=== PATIENT | male | born 1985 | race Caucasian/White ===

== ENCOUNTER 2017-02-20 05:31 | Inpatient (IN) ==
[2017-02-20] MEDS ORDERED: 0.9 % Sodium Chloride 1,000 ML IVC ONE (05:48)
[2017-02-20] MEDS ORDERED: Tdap (Boostrix) Vaccine 0.5 ML SYRINGE IM ONE (05:51)
--- NOTE | 2017-02-20 05:53 | Emergency Department Note ---
Disposition Clinical Impression: Swelling of right hand, Hand pain, right, History of heroin use Cellulitis Qualifiers: Site of cellulitis: extremity Site of cellulitis of extremity: upper extremity Laterality: right Qualified Code(s): L03.113 - Cellulitis of right upper limb Disposition: Still a Patient Referrals: Unassigned,Provider [Non-Partnered Physician] - Forms: ED Satisfaction Letter General Adult HPI - General Chief complaint: ED Extremity Injury, Upper Stated complaint: right hand swelling has had staph Time Seen by Provider: 02/20/17 05:40 Source: patient Mode of arrival: ambulatory Limitations: no limitations Nursing Notes Reviewed: Yes Vital Signs Reviewed: Yes - History of Present Illness HPI Narrative: 31-year-old [id number] male for evaluation of right hand swelling. Notes it is atraumatic. Patient states swelling started yesterday morning. Patient states that he does have a history of MRSA skin infections in the past due to IV drug use. Patient notes that he has been injecting heroin in his right wrist. Patient also notes that he possibly got stabbed with a thorn in the yard as well as the right wrist. Patient states that he attempted to drain some of the fluid with superficial laceration over the dorsum of his wrist. Notes pain with movement of the wrist. Denies any fevers but does note chills. Swelling is noted in the wrist and hand. Pain with decreased range of motion of the fingers. No pain to the forearm or elbow. Tetanus status is unknown Pain Scale: 8 - Related Data Allergies Allergy/AdvReac Type Severity Reaction Status Date / Time No Known Allergies Allergy Verified 02/20/17 05:33 All systems ED: reviewed and negative except as stated. Constitutional: Reports: as per HPI, chills. Denies: fever Eyes: Reports: as per HPI ENT ED: Reports: as per HPI Cardiovascular: Reports: as per HPI. Denies: chest pain Respiratory: Reports: as per HPI. Denies: dyspnea Gastrointestinal: Reports: as per HPI. Denies: nausea, vomiting Genitourinary: Reports: as per HPI Musculoskeletal: Reports: as per HPI, other (As described) Integumentary: Reports: as per HPI. Denies: rash Neurological: Reports: as per HPI Psychiatric: Reports: as per HPI Endocrine: Reports: as per HPI Hematological/Lymphatic: Reports: as per HPI Past Medical History - Past Medical History Medical history: Reports: other Psychiatric history: Reports: no psych history - Social History Smoking Status: Current every day smoker Smokeless Tobacco Status: No Alcohol use: Reports: rarely Drug use: Reports: none Physical Exam - General Limitations: no limitations General appearance: alert, in no apparent distress - Head Head exam: atraumatic, normocephalic, normal inspection - Eye Eye exam: Present: normal appearance, PERRL, EOMI - ENT ENT exam: normal exam, mucous membranes moist - Neck Neck exam: Present: normal inspection, trachea midline - Chest Chest inspection: Present: normal inspection, symmetric chest wall rise - Respiratory Respiratory exam: Present: normal lung sounds bilaterally. Absent: respiratory distress - Cardiovascular Cardiovascular exam: Present: regular rate, normal rhythm - Abdominal Exam Abdominal exam: Present: soft, Non-Tender - Expanded Upper Extremity Exam Shoulder exam: Present: normal inspection Arm exam: Present: normal inspection Elbow exam: Present: normal inspection Forearm/Wrist exam: Present: normal inspection Hand exam: Present: tenderness, swelling, abrasion (Superficial laceration over the dorsum of the R hand), erythema (Faint erythema over the right hand extending proximally, outlined with a skin marker proximally.), other (Warmth erythema). Absent: deformity, crepitus Neurosensory exam: Normal: radial nerve Vascular exam: Normal: radial pulse. Abnorm: capillary refill (4 second capillary refill to the fingers) - Back Exam Back exam: Present: normal inspection - Neurological Exam Neurological exam: Present: alert, oriented X3 - Skin Skin exam: Present: warm, dry, intact, other (As described above) Course Course Narrative: Patient seen and examined. Patient does have soft tissue swelling of the right hand. Etiology likely secondary to IV drug use versus yard work with a thorn injury. On exam the patient's right hand is grossly swollen. Pain with decreased flexion extension of the fingers due to pain and swelling. Does appear warm to touch. No erythema. Concerns of soft tissue infection. Patient will get IV fluids, labs, imaging disposition is pending. Broad- spectrum antibiotics ordered in the ER. Vital Signs Temperature 98.2 F 02/20/17 05:34 Pulse Rate 94 02/20/17 05:34 Respiratory Rate 20 02/20/17 05:34 Blood Pressure 153/81 02/20/17 05:34 O2 Sat by Pulse Oximetry 100 02/20/17 05:34 Temperature 98.2 F 02/20/17 05:34 Pulse Rate 94 02/20/17 05:34 Respiratory Rate 20 02/20/17 05:34 Blood Pressure 153/81 02/20/17 05:34 O2 Sat by Pulse Oximetry 100 02/20/17 05:34 Oxygen Delivery Oxygen Delivery Room Air Medical Decision Making - MDM Narrative Medical decision making narrative: Patient seen and examined. Patient has a concerning exam of R hand swelling. Patient is getting LABS, IMAGING. initial imaging of the R hand shows swelling without subcutaneous air. Patient is getting a CT hand to determine the extent of infection. Patient labs reviewed. At the time of this dictation, the patient will be signed out to the oncoming provider. Patient is getting IV antibiotics. - Lab Data Lab results reviewed: Yes I reviewed the patient's lab results. Result diagrams: 02/20/17 06:27 Lab Results 02/20/17 Range/Units 06:27 WBC 15.1 H (4.3-11.1) K/mcL RBC 4.76 (4.19-5.50) M/mcL Hgb 14.3 (12.9-16.9) g/dL Hct 43.6 (37.5-50.1) % MCV 91.6 (83.0-100.0) fL MCH 30.0 (28.0-33.3) pg MCHC 32.8 (31.6-35.5) g/dL RDW 12.7 (11.5-14.5) % Plt Count 345 (140-400) K/mcL MPV 9.5 (9.4-12.4) fL Immature Gran % 0.5 (0-4) % Seg Neutrophils % 71.2 % Lymphocytes % 14.7 % Monocytes % 11.4 % Eosinophils % 1.9 % Basophils % 0.3 % Neutrophils # 10.8 H (1.6-8.9) K/mcL Lymphocytes # 2.2 (0.6-4.6) K/mcL Monocytes # 1.7 H (0.0-1.3) K/mcL Eosinophils # 0.3 (0.0-0.6) K/mcL Basophils # 0.1 (0.0-0.2) K/mcL - Radiology Data Radiology results reviewed: Yes I reviewed the patient's radiology results. Hand X-Ray 02/20/17 05:50 IMPRESSION: 1. No acute bony findings in the right hand. 2. Soft tissue swelling in the dorsum of the right hand, potentially cellulitis given the clinical history. D/ / Rey Syed MD / Rey Syed MD Interpreting Provider: Rey Syed MD artolome - Yadi Situation: Demographics Background: Presenting Complaint Assessment: Vital Signs, Course and respsone to treatment, Exam Concerns, Patient/Family Expectation, Pertinant Lab Results Recommendation: Barrier(s) to disposition, Recommendation based on pending studies, treatments, or consults SBartolome Report Given to: Dr. Jose A Grullon Repor Time: 06:54 Attestation Statement - Attestation Attestation: I examined this patient and my medical decision-making was reviewed with the MACHINE ERECTOR/PA/Advanced Practice Nurse/Resident Physician. I agree with the documented findings, disposition and treatment plan as described except to the extent set forth below. Patient to ED with right hand swelling. History of IV drug use. Increased erythema and pain over 2 days. Started swelling significantly this morning. No fever. On examination the patient has a moderate to significant amount of swelling to the dorsum of the right hand. Decreased ability to extend his fingers. No areas of fluctuance. Plan. X-ray does not show any obvious subcutaneous air. Labs pending. We will check CT scan. Initiating IV antibiotics this time.
[2017-02-20] MEDS ORDERED: *HR* Morphine 2 MG/ML SYRINGE IVP ONE (05:56)
[2017-02-20] MEDS ORDERED: Ondansetron 4 MG/2 ML VIAL IVP ONE (05:56)
[2017-02-20] MEDS ORDERED: Vancomycin 1,250 MG in D5% in Water 250 ML IVPB ONE (06:29)
[2017-02-20] MEDS ORDERED: Piperacillin/Tazobactam 4.5 GM in D5% in Water (Mini-Bag+) 100 ML IVPB ONE (06:29)
[2017-02-20 06:35] LABS: Basophils # 0.1 K/mcL (0.0-0.2); Basophils % 0.3 %; Eosinophils # 0.3 K/mcL (0.0-0.6); Eosinophils % 1.9 %; Hematocrit 43.6 % (37.5-50.1); Hemoglobin 14.3 g/dL (12.9-16.9); Immature Granulocytes % 0.5 % (0-4); Lymphocytes # 2.2 K/mcL (0.6-4.6); Lymphocytes % 14.7 %; Mean Corpuscular HGB Conc 32.8 g/dL (31.6-35.5); Mean Corpuscular Volume 91.6 fL (83.0-100.0); Mean Platelet Volume 9.5 fL (9.4-12.4); Monocytes # 1.7 K/mcL (0.0-1.3); Monocytes % 11.4 %; Neutrophils # 10.8 K/mcL (1.6-8.9); Platelet Count 345 K/mcL (140-400); Red Blood Count 4.76 M/mcL (4.19-5.50); Red Cell Distribution Width 12.7 % (11.5-14.5); Segmented Neutrophils % 71.2 %
[2017-02-20 06:49] LABS: BUN/Creatinine Ratio 14 (6-26); Blood Urea Nitrogen 12 mg/dL (8-26); Calcium 9.5 mg/dL (8.6-10.8); Carbon Dioxide 25 mEq/L (19-29); Chloride 100 mEq/L (98-109); Glucose 92 mg/dL (70-99); Osmolality,Calculated 281 (280-300); Potassium 4.4 mEq/L (3.5-4.5); Sodium 136 mEq/L (136-145); eGFR For African Americans > 60 (> 60); eGFR For Non-African Americans > 60 (> 60)
--- NOTE | 2017-02-20 08:24 | Emergency Department Note ---
START Narrative - START START: I examined this patient and my medical decision-making was reviewed with the LOAD HAUL DUMP OPERATOR/PA/Advanced Practice Nurse/Resident Physician. I agree with the documented findings, disposition and treatment plan as described except to the extent set forth below. ED attending note: Patient seen with emergency medicine resident Dr. Naranjo. Please see a copy of his note for details of the H&P, evaluation, management and disposition of this patient. We independently had [id number] contact with the patient Briefly: Condition initially worked up by Dr. Barber and Dr. Garcia from the overnight shift. Please see copy their note for details of ED workup up + out at 7 AM. Patient signed out at 7 AM to review the results of the laboratory studies CT and then admission. A 31-year-old male [id number] IV drug user. Presents with reddened swollen right hand for at least 2 days. Had prior IV drug abuse associated arm infection which she said required surgery. Patient's CT scan results are pending. Disposition pending.
--- NOTE | 2017-02-20 08:37 | Emergency Department Note ---
START Narrative - START START: Sign out was given from overnight crew Dr Cam and Dr. Garcia. Patient has a history of IV drug use. He states that he did attempt to shoot up in this area. This is unchanged from previously and he had enough surgery. Does have swelling and edema to his right hand. We are waiting a CT with contrast. He is on IV vancomycin and Zosyn. Anticipate admission.
--- NOTE | 2017-02-20 09:07 | Emergency Department Note ---
Disposition Clinical Impression: Swelling of right hand, Hand pain, right, History of heroin use, Tenosynovitis of hand Cellulitis Qualifiers: Site of cellulitis: extremity Site of cellulitis of extremity: upper extremity Laterality: right Qualified Code(s): L03.113 - Cellulitis of right upper limb Disposition: Admitted As Inpatient Condition: Good Referrals: Unassigned,Provider [Non-Partnered Physician] - Forms: ED Satisfaction Letter Time of Disposition: 09:11 General Adult HPI - General Chief complaint: ED Extremity Injury, Upper Stated complaint: right hand swelling has had staph Time Seen by Provider: 02/20/17 05:40 Source: patient Mode of arrival: ambulatory Limitations: no limitations Nursing Notes Reviewed: Yes Vital Signs Reviewed: Yes - History of Present Illness Pain Scale: 2 - Related Data Home Medications Medication Instructions Recorded Confirmed No Known Home Drugs 02/20/17 02/20/17 Allergies Allergy/AdvReac Type Severity Reaction Status Date / Time No Known Allergies Allergy Verified 02/20/17 05:33 Constitutional: Reports: as per HPI, chills. Denies: fever Eyes: Reports: as per HPI ENT ED: Reports: as per HPI Cardiovascular: Reports: as per HPI. Denies: chest pain Respiratory: Reports: as per HPI. Denies: dyspnea Gastrointestinal: Reports: as per HPI. Denies: nausea, vomiting Genitourinary: Reports: as per HPI Musculoskeletal: Reports: as per HPI, other (As described) Integumentary: Reports: as per HPI. Denies: rash Neurological: Reports: as per HPI Psychiatric: Reports: as per HPI Endocrine: Reports: as per HPI Hematological/Lymphatic: Reports: as per HPI Past Medical History - Past Medical History Medical history: Reports: other Psychiatric history: Reports: no psych history - Social History Smoking Status: Current every day smoker Smokeless Tobacco Status: No Alcohol use: Reports: rarely Drug use: Reports: none Physical Exam - General Limitations: no limitations General appearance: alert, in no apparent distress Course Course Narrative: Sign out was given from overnight crew Dr Cam and Dr. Garcia. Patient has a history of IV drug use. He states that he did attempt to shoot up in this area. This is unchanged from previously and he had enough surgery. Does have swelling and edema to his right hand. We are waiting a CT with contrast. He is on IV vancomycin and Zosyn. Anticipate admission. - Reevaluation(s) Reevaluation #1: Patient's CT showed tenosynovitis as well as cellulitis. We have started patient on IV antibiotic and will admit to the hospital. Time: 09:10 - Consultations Consultation #1: Spoke with Dr Baum. He agrees with the antibiotic choice and requests admission to the hospital via the hosiptalist. We have placed the consult to ortho. Time: 09:06 Consultation #2: Dr Boone accepted Pt in stable condition. Time: 09:15 Vital Signs Temperature 98.2 F 02/20/17 05:34 Pulse Rate 94 02/20/17 05:34 Respiratory Rate 20 02/20/17 05:34 Blood Pressure 153/81 02/20/17 05:34 O2 Sat by Pulse Oximetry 100 02/20/17 05:34 Temperature 98.2 F 02/20/17 05:34 Pulse Rate 87 02/20/17 07:25 Respiratory Rate 16 02/20/17 07:25 Blood Pressure 129/76 02/20/17 07:25 O2 Sat by Pulse Oximetry 100 02/20/17 07:25 Oxygen Delivery Oxygen Delivery Room Air Medical Decision Making - Lab Data Result diagrams: 02/20/17 06:27 02/20/17 06:27 Lab Results 02/20/17 02/20/17 02/20/17 Range/Units 06:27 06:27 06:27 WBC 15.1 H (4.3-11.1) K/mcL RBC 4.76 (4.19-5.50) M/mcL Hgb 14.3 (12.9-16.9) g/dL Hct 43.6 (37.5-50.1) % MCV 91.6 (83.0-100.0) fL MCH 30.0 (28.0-33.3) pg MCHC 32.8 (31.6-35.5) g/dL RDW 12.7 (11.5-14.5) % Plt Count 345 (140-400) K/mcL MPV 9.5 (9.4-12.4) fL Immature Gran % 0.5 (0-4) % Seg Neutrophils % 71.2 % Lymphocytes % 14.7 % Monocytes % 11.4 % Eosinophils % 1.9 % Basophils % 0.3 % Neutrophils # 10.8 H (1.6-8.9) K/mcL Lymphocytes # 2.2 (0.6-4.6) K/mcL Monocytes # 1.7 H (0.0-1.3) K/mcL Eosinophils # 0.3 (0.0-0.6) K/mcL Basophils # 0.1 (0.0-0.2) K/mcL Sodium 136 (136-145) mEq/L Potassium 4.4 (3.5-4.5) mEq/L Chloride 100 (98-109) mEq/L Carbon Dioxide 25 (19-29) mEq/L BUN 12 (8-26) mg/dL Creatinine 0.84 (0.72-1.25) mg/dL Est GFR ( Amer) > 60 (> 60) Est GFR (Non-Af Amer) > 60 (> 60) BUN/Creatinine Ratio 14 (6-26) Glucose 92 (70-99) mg/dL Calculated Osmolality 281 (280-300) Calcium 9.5 (8.6-10.8) mg/dL C-Reactive Protein 45 H (Less than 5) mg/L
[2017-02-20] MEDS ORDERED: Naloxone 0.4 MG/ML INJ IVP PRN (10:24)
[2017-02-20] MEDS ORDERED: Ibuprofen 600 MG TABLET PO PRN (10:40)
--- NOTE | 2017-02-20 10:44 | Event Note ---
Date of Encounter: 02/20/17 Time of Encounter: 10:42 Patients and examined. I.e. drug abuser with right-hand cellulitis related to injection site. He is having extensor tendon tenosynovitis. He denies any fever. Orthopedics have been contacted from the emergency room and will see the patient. Radial pulsations are intact as well as distal capillary circulation. He injects heroin intravenously. He had prior MRSA infection. Blood closures will be obtained vancomycin and Zosyn. He would like to be checked for hepatitis and HIV. Full code.
[2017-02-20] MEDS: Piperacillin/Tazobactam 3.375 GM in D5% in Water (Mini-Bag+) 100 ML IVPB SCH ×2 (11:42→17:49)
--- NOTE | 2017-02-20 12:01 | Internal Med History&Physical ---
Date of Encounter: 02/20/17 Time of Encounter: 10:30 Assessment and Plan (1) Cellulitis Current visit: Yes Status: Acute Assess: Patient presents with edema and erythema of right hand due to cellulitis infection resulting from heroin injection. Plan: Blood cultures ordered Continue Zosyn 3.375 q6 IV Continue Vancomycin with pharmacy dosing IV fluids ordered Motrin ordered PRN for mild to moderate pain Hydrocodone ordered PRN for moderate pain Monitor vital signs Qualifiers: Site of cellulitis: extremity Site of cellulitis of extremity: upper extremity Laterality: right Qualified Code(s): L03.113 - Cellulitis of right upper limb (2) Hand pain, right Current visit: Yes Status: Acute Assess: Patient presents with edema and erythema of right hand due to cellulitis infection resulting from heroin injection. Plan: Blood cultures ordered Continue Zosyn 3.375 q6 IV Continue Vancomycin with pharmacy dosing IV fluids ordered Motrin ordered PRN for mild to moderate pain Hydrocodone ordered PRN for moderate pain Monitor vital signs (3) Swelling of right hand Current visit: Yes Status: Acute Assess: Patient presents with edema and erythema of right hand due to cellulitis infection resulting from heroin injection. Plan: Blood cultures ordered Continue Zosyn 3.375 q6 IV Continue Vancomycin with pharmacy dosing IV fluids ordered Motrin ordered PRN for mild to moderate pain Hydrocodone ordered PRN for moderate pain Monitor vital signs (4) Tenosynovitis of hand Current visit: Yes Status: Acute Assess: Patient presents with edema and erythema of right hand due to cellulitis infection resulting from heroin injection. Plan: Blood cultures ordered Continue Zosyn 3.375 q6 IV Continue Vancomycin with pharmacy dosing IV fluids ordered Motrin ordered PRN for mild to moderate pain Hydrocodone ordered PRN for moderate pain Monitor vital signs (5) History of heroin use Current visit: Yes Status: Acute Assess: Patient presents with history of heroin injection use. Plan: Patient counseled on dangers of illicit drug use and risks associated with IV durg use Monitor patient's vital signs (6) DVT prophylaxis Current visit: Yes Status: Acute Assess: Patient placed on DVT prophylaxis due to inpatient status, history of infection , and IV drug use. Plan: Ambulation ordered as tolerated Heparin SQ 5,000 ordered q8 Internal Medicine - H&P: HPI History of present illness: Mr. Rhodes is a 31 year old male Past Med Surg Social Fam HX - Past Medical History Source: patient Medical history: other (Staph infection of lower right forearm) Psychiatric history: no psych history - Social History Smoking Status: Current every day smoker Packs per day: 1 Smokeless Tobacco Status: No Alcohol use: rarely Drug use: marijuana, other (Heroin injections) Current living situation: Home - Independent, Home Activity Level: Independent ambulation Recent Out of Country Travel Within the Last 8 Weeks: No Exposure or Possible Exposure to Illness During Travel: No - Family History Maternal Grandmother Race: Family Member Ethnicity: Non- Hx Family Endocrine Disorder: Yes (diabetes) Father History Unknown: Yes (Patient reports he does not speak to his father) Mother History Unknown: Yes (Patient reports he does not speak to his mother) Brother History Unknown: Yes (Patient reports brother's health status is unknown to him) Sister History Unknown: Yes (Patient reports sister's health status is unknown to him) Internal Medicine - H&P: Meds No Known Home Drugs 02/20/17 [History] Allergies No Known Allergies Allergy (Verified 02/20/17 05:33) All Systems PM: A 10-system review of systems was performed and is negative for pertinent findings except as documented above in the HPI. - Constitutional Constitutional: no chills, no fever(s), no night sweats - EENT Eyes: no change in vision, no discharge, no pain, no photophobia Ears: no ear discharge, no ear pain, no tinnitus Nose, mouth and throat: no dysphagia, no nasal discharge, no neck pain, no sore throat - Breasts Breasts: as per HPI - Cardiovascular Cardiovascular ROS IM: no chest pain, no diaphoresis, no dyspnea, no lightheadedness, no palpitations, no syncope - Respiratory Respiratory: no cough, no dyspnea, no wheezing, no excessive phlegm production - Gastrointestinal Gastrointestinal: no abdominal pain, no diarrhea, no hematemesis, no hematochezia, no melena, no nausea, no vomiting - Genitourinary Genitourinary ROS male: as per HPI - Musculoskeletal Musculoskeletal ROS IM: no numbness, no tingling - Integumentary Integumentary IM: as per HPI Additional comments: Patient reports pain related to edema and erythema of right hand related to reported heroin injection. - Neurological Neurological ROS: no confusion, no convulsions, no focal weakness, no numbness, no tingling, no tremor(s) - Psychiatric Psychiatric: as per HPI - Endocrine Endocrine IM: as per HPI - Hematologic/Lymphatic Hematologic/Lymphatic: no easy bruising - Allergic/Immunologic Allergic/Immunologic: as per HPI - Constitutional Vitals: Temp Pulse Resp BP Pulse Ox 98.4 F 75 18 121/67 100 02/20/17 11:44 02/20/17 11:44 02/20/17 11:44 02/20/17 11:44 02/20/17 11:44 General appearance: Present: cooperative, A&O X 3, answers questions appropriately - Head Head exam: Present: atraumatic, normocephalic - Eye Eye exam: Present: PERRL, conjuntiva pink, sclera anicteric Pupils: Present: PERRL - ENT ENT exam: Present: normal exam - Neck Neck exam general surgery: Present: supple, trachea midline. Absent: lymphadenopathy - Respiratory Respiratory exam: Present: CTAB. Absent: accessory muscle use, rales, rhonchi, wheezes - Cardiovascular Cardiovascular exam: Present: RRR, +S1, +S2. Absent: diastolic murmur, gallop, rubs, systolic murmur - GI/Abdominal GI/Abdominal exam: Present: normal bowel sounds, soft, no peritoneal signs. Absent: distended, tenderness - Rectal Rectal exam: Present: deferred - Additional comments: exam deferred. - Extremities Exam Extremities exam: Present: warm, radial pulses palpable and symetrical. Absent : calf tenderness, cyanotic, pedal edema - Back Exam Back exam: Present: normal inspection - Neurological Exam Neurological exam: Present: alert, oriented X3, reflexes normal, no focal deficits - Psychiatric Psychiatric exam: Present: normal affect, normal mood - Skin Skin exam: Present: dry, intact Additional comments: Skin of right hand is erythematous and edematous due to infection/cellulitis. Internal Med - H&P Results - Labs CBC & Chem 7: 02/20/17 06:27 02/20/17 06:27 - Diagnostic Studies Other Images Additional comments: CT of hand dated 02/20/17 shows extensive dorsal wrist and hand cellulitis with infectious second wrist extensor tenosynovitis. No evidence of a soft tissue abscess or gas to suggest necrotizing infection. Normal wrist and hand alignment with no findings of suspicions for osteomyelitis. 3-View x-ray of the right hand dated 02/20/17 shows no acute bony findings in the right hand. Soft tissue swelling in the dorsum of the right hand. Potential cellulitis given the patient's clinical history.
[2017-02-20] MEDS: 0.9 % Sodium Chloride 1,000 ML IVC SCH (13:34)
[2017-02-20] MEDS: *HR* Heparin 5,000 UNIT/ML VIAL SQ SCH ×2 (13:36→22:57)
--- NOTE | 2017-02-20 14:56 | Orthopedic Consult Note ---
Date of Encounter: 02/20/17 Time of Encounter: 14:50 History of Present Illness Chief complaint: Right hand pain and swelling HPI: Mr. Rhodes is a 31 year old right hand dominant male who was self injected heroin into his right hand about 3 days ago. He states he injected into the region of the snuffbox. He noted increased pain and swelling. He presented to the emergency room with the above complaints. He had x-rays taken and a CT scan performed. He had elevated white cell count and C-reactive protein was admitted for internal venous antibiotics. Patient states that he had a similar episode several years ago and underwent surgery on his right forearm. Patient denies neurovascular complaints. Predominate complaint is pain and stiffness. For complete history and physical data please see the completed portion of the medical record. Pertinent orthopedic examination this time reveals relatively global edema about the dorsum of the right hand and wrist. Flexion and extension are limited secondary to pain. Capillary refill is normal. Do not appreciate any obvious abscess or pockets of material. There are no epitrochlear nodes. White blood cell count is 15.1 without a left shift. C-reactive protein is markedly elevated at 45. X-rays of the right hand do not show any acute processes, there is evidence of old fracture deformity of the fifth metacarpal neck. I reviewed his CT scan of the right hand and wrist. There is no evidence of a singular loculated pocket of material. No evidence of gas. No evidence of bony destruction. There is inflammatory changes within the second dorsal extensor compartment. Impression: Right hand cellulitis and extensor tenosynovitis in intravenous drug injection Recommendation: At this time I would continue with IV antibiotics with broad- spectrum coverage as currently instituted. Would reevaluate the hand in 24 hours to see if there is anything that needs to be opened the suspect the patient should respond well to conservative measures. Agree with the use of ibuprofen as anti-inflammatory agent. Reevaluate him in 24 hours and make further recommendations pending response. Thank you very much for allowing me to see and care for Mr. Rhodes. Sincerely , Ernesto Baum,DO Past Med Surg Social Fam HX - Past Medical History Medical history: other (Staph infection of lower right forearm) Psychiatric history: no psych history - Social History Smoking Status: Current every day smoker Packs per day: 1 Smokeless Tobacco Status: No Alcohol use: rarely Drug use: marijuana, other (Heroin injections) - Family History Maternal Grandmother Race: Family Member Ethnicity: Non- Hx Family Endocrine Disorder: Yes (diabetes) Father History Unknown: Yes (Patient reports he does not speak to his father) Mother History Unknown: Yes (Patient reports he does not speak to his mother) Brother History Unknown: Yes (Patient reports brother's health status is unknown to him) Sister History Unknown: Yes (Patient reports sister's health status is unknown to him) Medications and Allergies No Known Home Drugs 02/20/17 [History] Allergies No Known Allergies Allergy (Verified 02/20/17 05:33) All Systems Reviewed: A 10-system review of systems was performed and is negative for pertinent findings except as documented above in the HPI. Physical Exam - Constitutional Vitals: Temp Pulse Resp BP Pulse Ox 98.4 F 75 18 121/67 100 02/20/17 11:44 02/20/17 11:44 02/20/17 11:44 02/20/17 11:44 02/20/17 11:44 Results - Labs Result Diagrams: 02/20/17 06:27 02/20/17 06:27 Labs: Abnormal lab results WBC 15.1 K/mcL (4.3-11.1) H 02/20/17 06:27 Neutrophils # 10.8 K/mcL (1.6-8.9) H 02/20/17 06:27 Monocytes # 1.7 K/mcL (0.0-1.3) H 02/20/17 06:27 C-Reactive Protein 45 mg/L (Less than 5) H 02/20/17 06:27 All other labs normal. - Diagnostic results Wrist/Hand x-ray: image reviewed Wrist/Hand CT: image reviewed Consult Discharge Plan - Plan Referrals: NO,PCP [Primary Care Provider] -
[2017-02-20] MEDS ORDERED: Piperacillin/Tazobactam 3.375 GM in D5% in Water (Mini-Bag+) 100 ML IVPB SCH (16:00)
[2017-02-20] MEDS: Vancomycin 1,250 MG in D5% in Water 250 ML IVPB SCH (17:49)
[2017-02-21] MEDS: 0.9 % Sodium Chloride 1,000 ML IVC SCH ×3 (01:12→23:43)
[2017-02-21] MEDS: Piperacillin/Tazobactam 3.375 GM in D5% in Water (Mini-Bag+) 100 ML IVPB SCH ×4 (01:12→23:44)
[2017-02-21 04:32] LABS: Basophils # 0.1 K/mcL (0.0-0.2); Basophils % 0.6 %; Eosinophils # 0.2 K/mcL (0.0-0.6); Eosinophils % 1.2 %; Hematocrit 42.9 % (37.5-50.1); Hemoglobin 14.1 g/dL (12.9-16.9); Immature Granulocytes % 0.4 % (0-4); Lymphocytes # 2.2 K/mcL (0.6-4.6); Lymphocytes % 16.3 %; Mean Corpuscular HGB Conc 32.9 g/dL (31.6-35.5); Mean Corpuscular Hemoglobin 30.3 pg (28.0-33.3); Mean Corpuscular Volume 92.1 fL (83.0-100.0); Mean Platelet Volume 10.1 fL (9.4-12.4); Monocytes # 1.6 K/mcL (0.0-1.3); Neutrophils # 9.5 K/mcL (1.6-8.9); Platelet Count 339 K/mcL (140-400); Red Blood Count 4.66 M/mcL (4.19-5.50); Red Cell Distribution Width 12.8 % (11.5-14.5); Segmented Neutrophils % 69.5 %
[2017-02-21 04:55] LABS: Alanine Aminotransferase 73 Units/L (0-55); Albumin 3.5 g/dL (3.5-5.0); Alkaline Phosphatase 53 Units/L (38-126); Aspartate Amino Transferase 37 Units/L (5-34); BUN/Creatinine Ratio 11 (6-26); Bilirubin,Total 1.6 mg/dL (0.2-1.2); Blood Urea Nitrogen 10 mg/dL (8-26); Calcium 9.4 mg/dL (8.6-10.8); Carbon Dioxide 26 mEq/L (19-29); Chloride 104 mEq/L (98-109); Globulin 3.6 g/dL (2.4-3.5); Glucose 123 mg/dL (70-99); Osmolality,Calculated 286 (280-300); Potassium 4.1 mEq/L (3.5-4.5); Sodium 138 mEq/L (136-145); Total Protein 7.1 g/dL (6.0-8.3); eGFR For African Americans > 60 (> 60); eGFR For Non-African Americans > 60 (> 60)
[2017-02-21] MEDS: Vancomycin 1,250 MG in D5% in Water 250 ML IVPB SCH ×2 (05:51→20:39)
[2017-02-21] MEDS: *HR* Heparin 5,000 UNIT/ML VIAL SQ SCH ×3 (05:54→21:18)
[2017-02-21] MEDS: *HR* HYDROcodone/Acet 5/325 mg TABLET PO PRN ×2 (08:42→20:28)
--- NOTE | 2017-02-21 10:25 | Internal Med Progress Note ---
Date of Encounter: 02/21/17 Time of Encounter: 09:15 - Assessment and plan (1) Cellulitis of right hand Current Visit: Yes Status: Acute Assessment and plan: Patient with erythema, edema, and tenderness to his right hand. He freely admits injecting that hand with heroin. CT scan consistent with cellulitis. Leukocytosis trending down. Continue Vanco and Zosyn. Orthopedics are on board. Erythema and edema. Lessened from yesterday according to pen markings. Capillary refill brisk to all fingers, radial pulse strong. Sensation intact to all digits. Heart rate and blood pressure stable, no indication of sepsis. ITS Impressions Hand X-Ray 02/20/17 05:50 IMPRESSION: 1. No acute bony findings in the right hand. 2. Soft tissue swelling in the dorsum of the right hand, potentially cellulitis given the clinical history. D/ / Rey Syed MD / Rey Syed MD Interpreting Provider: Rey Syed MD Hand CT 02/20/17 06:36 IMPRESSION: 1. Extensive dorsal wrist and hand cellulitis with infectious second wrist extensor tenosynovitis. 2. No evidence of a soft tissue abscess or gas to suggest a necrotizing infection. 3. Normal wrist and hand alignment with no findings suspicious for osteomyelitis. D/ / 02/20/2017 08:49:10 Federico Kong MD / Delmi Roberson Interpreting Provider: Federico Kong MD (2) Leukocytosis Current Visit: Yes Status: Acute (3) History of MRSA infection Current Visit: Yes Status: Chronic Assessment and plan: Unclear on timeframe, we will obtain MRSA surveillance swab. (4) History of heroin use Current Visit: Yes Status: Chronic Assessment and plan: Negative for HIV, hepatitis panel still pending. Declines resources at this time, we will readdress topic (5) Tenosynovitis of hand Current Visit: Yes Status: Acute (6) DVT prophylaxis Current Visit: Yes Status: Acute Assessment and plan: Subcutaneous heparin - Subjective Interval history: Patient seen and examined. On examination, patient resting supine in bed asleep. He awakened easily to voice and denied pain and stated he wants to continue to sleep. - Constitutional Vitals: Temp Pulse Resp BP Pulse Ox 98.2 F 73 16 114/63 98 02/21/17 07:14 02/21/17 07:14 02/21/17 07:14 02/21/17 07:14 02/21/17 07:14 General appearance: Present: cooperative, A&O X 3, pleasant, no acute distress, answers questions appropriately - Head Head exam: Present: atraumatic, normocephalic - Eye Eye exam: Present: PERRL, conjuntiva pink, sclera anicteric Pupils: Present: PERRL - Neck Neck exam general surgery: Present: supple, trachea midline. Absent: lymphadenopathy - Respiratory Respiratory exam: Present: decreased breath sounds. Absent: accessory muscle use, rales, respiratory distress, rhonchi, wheezes - Cardiovascular Cardiovascular exam: Present: RRR, +S1, +S2. Absent: diastolic murmur, gallop, rubs, systolic murmur - GI/Abdominal GI/Abdominal exam: Present: normal bowel sounds, soft, no peritoneal signs. Absent: distended, tenderness - Extremities Exam Extremities exam: Present: warm, radial pulses palpable and symetrical. Absent : calf tenderness, cyanotic, pedal edema - Expanded Upper Extremities Exam Forearm wrist exam: Present: erythema, swelling, tenderness Hand wrist exam: Present: erythema, swelling, tenderness Vascular exam: Present: normal capillary refill. Absent: vascular compromise - Neurological Exam Neurological exam: Present: alert, CN II-XII intact, oriented X3, no focal deficits, strengths equal and symetr throughout. Absent: pronater drift, facial droop, speech deficit - Skin Skin exam: Present: dry, intact, normal color, warm Internal Medicine: Result - Labs CBC & Chem 7: 02/21/17 03:25 02/21/17 03:25 Labs: Short CBC 02/21/17 Range/Units 03:25 WBC 13.7 H (4.3-11.1) K/mcL Hgb 14.1 (12.9-16.9) g/dL Hct 42.9 (37.5-50.1) % Plt Count 339 (140-400) K/mcL Neutrophils # 9.5 H (1.6-8.9) K/mcL BMP 02/21/17 03:25 Sodium 138 Potassium 4.1 Chloride 104 Carbon Dioxide 26 BUN 10 Creatinine 0.93 Glucose 123 H Calcium 9.4 Liver Function 02/21/17 Range/Units 03:25 Total Bilirubin 1.6 H (0.2-1.2) mg/dL AST 37 H (5-34) Units/L ALT 73 H (0-55) Units/L Alkaline Phosphatase 53 (38-126) Units/L Albumin 3.5 (3.5-5.0) g/dL Consult Discharge Plan - Plan Referrals: NO,PCP [Primary Care Provider] -
[2017-02-21 10:55] LABS: Hepatitis B Core IgM Nonreactive (Nonreactive); Hepatitis B Surface Antigen Nonreactive (Nonreactive)
[2017-02-21 10:59] LABS: Hepatitis C Virus Antibody Reactive (Nonreactive)
[2017-02-21] MEDS ORDERED: Ondansetron 4 MG/2 ML VIAL IVP PRN (16:47)
[2017-02-21] MEDS ORDERED: *HR* Promethazine 25 MG/ML VIAL IVP PRN (16:47)
--- NOTE | 2017-02-21 19:10 | Orthopedics Progress Note ---
Date of Encounter: 02/21/17 Time of Encounter: 19:07 Subjective Principal diagnosis: Right hand infection Interval history: 02/21/2017. Patient is feeling much better in regards to the right hand. He is having much less pain has better motion. Vital signs are stable he is afebrile. Clinically he has marked improvement in the past 24 hours with markedly diminished edema and erythema. Motion has improved significantly to where there is minimal loss of flexion and extension. Minimal fullness over the second dorsal extensor compartment. White blood cell count has dropped. Impression: Cellulitis with second dorsal extensor compartment tenosynovitis Recommendation: Would continue with intravenous antibiotics. The patient continues to have significant improvement over the next 48 hours can probably convert to oral antibiotics with similar coverage. At this time there is no indications for intervention on a surgical basis. Objective Vital signs: Vital Signs Temp Pulse Resp BP Pulse Ox 02/21/17 14:42 97.6 F 64 17 122/53 98 02/21/17 11:29 98.3 F 78 17 136/64 98 02/21/17 07:14 98.2 F 73 16 114/63 98 02/21/17 03:28 97.9 F 64 12 123/54 99 02/20/17 22:56 98.1 F 80 16 135/70 98 Intake and Output 02/21/17 02/21/17 02/21/17 07:59 15:59 23:59 Intake Total 1100 / 1100 580 / 580 120 / 120 Balance 1100 / 1100 580 / 580 120 / 120 Intake: IV Fluids 1100 / 1100 100 / 100 0.9 % Sodium Chloride 1, 1000 / 1000 000 ML @ 100 mls/hr IVC . Q10H [facility] Rx#:[id number] Zosyn 3.375 GM In 100 / 100 100 / 100 Dextrose 5% (Minibag+) 100 ML 100 ML @ 25 mls/hr IVPB Q8HR MARY Rx#: [id number] Oral 480 / 480 120 / 120 Other: Meal Lunch Dinner Percent of Meal Consumed 100% 50% Weight 86.8 kg Patient Weight 02/21/17 23:59 Weight 86.8 kg - Labs CBC & BMP: 02/21/17 03:25 02/21/17 03:25 Labs: Abnormal lab results WBC 13.7 K/mcL (4.3-11.1) H 02/21/17 03:25 Neutrophils # 9.5 K/mcL (1.6-8.9) H 02/21/17 03:25 Monocytes # 1.6 K/mcL (0.0-1.3) H 02/21/17 03:25 Glucose 123 mg/dL (70-99) H 02/21/17 03:25 Total Bilirubin 1.6 mg/dL (0.2-1.2) H 02/21/17 03:25 AST 37 Units/L (5-34) H 02/21/17 03:25 ALT 73 Units/L (0-55) H 02/21/17 03:25 C-Reactive Protein 45 mg/L (Less than 5) H 02/20/17 06:27 Globulin 3.6 g/dL (2.4-3.5) H 02/21/17 03:25 Albumin/Globulin Ratio 1.0 (1.1-2.2) L 02/21/17 03:25 Hepatitis C Ab Screen Reactive (Nonreactive) H 02/21/17 03:25 Consult Discharge Plan - Plan Referrals: NO,PCP [Primary Care Provider] -
[2017-02-22 05:35] LABS: Basophils # 0.1 K/mcL (0.0-0.2); Basophils % 0.7 %; Eosinophils # 0.1 K/mcL (0.0-0.6); Eosinophils % 0.6 %; Hematocrit 41.8 % (37.5-50.1); Hemoglobin 14.1 g/dL (12.9-16.9); Immature Granulocytes % 0.5 % (0-4); Lymphocytes % 15.9 %; Mean Corpuscular HGB Conc 33.7 g/dL (31.6-35.5); Mean Corpuscular Hemoglobin 30.7 pg (28.0-33.3); Mean Corpuscular Volume 90.9 fL (83.0-100.0); Mean Platelet Volume 9.9 fL (9.4-12.4); Monocytes # 1.1 K/mcL (0.0-1.3); Monocytes % 8.8 %; Neutrophils # 9.4 K/mcL (1.6-8.9); Platelet Count 357 K/mcL (140-400); Red Cell Distribution Width 12.5 % (11.5-14.5); Segmented Neutrophils % 73.5 %
[2017-02-22 05:49] LABS: BUN/Creatinine Ratio 11 (6-26); Blood Urea Nitrogen 10 mg/dL (8-26); C-Reactive Protein 30 mg/L (Less than 5); Calcium 9.3 mg/dL (8.6-10.8); Carbon Dioxide 22 mEq/L (19-29); Chloride 109 mEq/L (98-109); Glucose 125 mg/dL (70-99); Osmolality,Calculated 295 (280-300); Potassium 4.1 mEq/L (3.5-4.5); Sodium 142 mEq/L (136-145); eGFR For African Americans > 60 (> 60); eGFR For Non-African Americans > 60 (> 60)
[2017-02-22] MEDS: *HR* Heparin 5,000 UNIT/ML VIAL SQ SCH ×3 (06:34→23:27)
[2017-02-22] MEDS: Vancomycin 1,250 MG in D5% in Water 250 ML IVPB SCH (06:34)
[2017-02-22] MEDS: *HR* HYDROcodone/Acet 5/325 mg TABLET PO PRN ×2 (06:39→23:33)
[2017-02-22] MEDS: Piperacillin/Tazobactam 3.375 GM in D5% in Water (Mini-Bag+) 100 ML IVPB SCH ×3 (08:04→23:31)
[2017-02-22] MEDS: 0.9 % Sodium Chloride 1,000 ML IVC SCH ×3 (11:46→23:26)
--- NOTE | 2017-02-22 11:48 | Internal Med Progress Note ---
Date of Encounter: 02/22/17 Time of Encounter: 09:15 - Assessment and plan (1) Cellulitis Current Visit: Yes Status: Acute Assessment and plan: Pt with R hand cellulitis that appears to be greatly improved from admission. Pt admits to injecting heroin into that hand near the wrist. There is no redness noted, however, some swelling remains. He states that it looks as if it has improved but is still having difficulty moving his wrist. He was seen by ortho yesterday who recommends 48 hours of continued IV atb, switch to oral. Pt is agreeable and states that he will work on a ride home for tomorrow. Strong radial pulse, brisk capillary refill to nailbeds. White count 12.7 today , continues to improve. VS stable. Continue to monitor pt Monitor labs Monitor pt Continue IV atb Assess for possible dc tomorrow. Qualifiers: Site of cellulitis: extremity Site of cellulitis of extremity: upper extremity Laterality: right Qualified Code(s): L03.113 - Cellulitis of right upper limb (2) Swelling of right hand Current Visit: Yes Status: Acute Assessment and plan: Plan as above. Pt states that it has improved since arrival. (3) Hand pain, right Current Visit: Yes Status: Acute Assessment and plan: Plan as above (4) History of heroin use Current Visit: Yes Status: Chronic Assessment and plan: Pt states that he is not ready to quit at this time. Suggest offering resources on discharge. History of cellulitis/MRSA, hospitalization previously d/t same. Hepatitis C antibody reactive (5) Leukocytosis Current Visit: Yes Status: Acute Assessment and plan: Improving. 12.7 today. Qualifiers: Leukocytosis type: unspecified Qualified Code(s): D72.829 - Elevated white blood cell count, unspecified (6) History of MRSA infection Current Visit: Yes Status: Chronic Assessment and plan: History of same in the past from IV drug use. Pt on precautions. (7) DVT prophylaxis Current Visit: Yes Status: Acute Assessment and plan: Subcutaneous heparin - Time Spent With Patient less than 15 minutes - Subjective Interval history: Patient's was seen and examined approximately 9:15 AM. Patient is alert and awake, resting, watching TV in bed. He reports that swelling has improved, however, is still having difficulty moving his wrist. Redness is gone at this time. He has strong radial pulses in right wrist, neurologically intact with normal feeling, and brisk capillary refill. Patient states that he feels that he is going to have trouble getting a ride home and wants to go today. He is agreeable to stay for IV antibiotics. He is not interested in any resources to stop using IV drugs. Today his hepatitis C antibody was reactive. - Constitutional Vitals: Temp Pulse Resp BP Pulse Ox 97.8 F 68 17 154/69 95 02/22/17 06:40 02/22/17 06:40 02/22/17 06:40 02/22/17 06:40 02/22/17 06:40 General appearance: Present: cooperative, A&O X 3, pleasant, answers questions appropriately - Head Head exam: Present: normal inspection - Eye Eye exam: Present: normal appearance, conjuntiva pink - ENT ENT exam: Present: mucous membranes moist, normal exam - Neck Neck exam general surgery: Present: normal inspection. Absent: lymphadenopathy , tenderness - Respiratory Respiratory exam: Present: CTAB. Absent: rales, rhonchi, stridor, wheezes - Cardiovascular Cardiovascular exam: Present: RRR, +S1, +S2. Absent: clicks, diastolic murmur, gallop, systolic murmur - GI/Abdominal GI/Abdominal exam: Present: normal bowel sounds, soft. Absent: distended, hepatomegaly, tenderness - Extremities Exam Extremities exam: Present: normal inspection, tenderness, warm, radial pulses palpable and symetrical. Absent: mottling, pedal edema - Neurological Exam Neurological exam: Present: alert, oriented X3, no focal deficits, strengths equal and symetr throughout Internal Medicine: Result - Labs CBC & Chem 7: 02/22/17 05:19 02/22/17 05:19 Labs: Short CBC 02/22/17 Range/Units 05:19 WBC 12.7 H (4.3-11.1) K/mcL Hgb 14.1 (12.9-16.9) g/dL Hct 41.8 (37.5-50.1) % Plt Count 357 (140-400) K/mcL Neutrophils # 9.4 H (1.6-8.9) K/mcL BMP 02/22/17 05:19 Sodium 142 Potassium 4.1 Chloride 109 Carbon Dioxide 22 BUN 10 Creatinine 0.94 Glucose 125 H Calcium 9.3 Consult Discharge Plan - Plan Referrals: NO,PCP [Primary Care Provider] -
[2017-02-22] MEDS: Vancomycin 1,500 MG in D5% in Water 250 ML IVPB SCH (16:55)
[2017-02-23] MEDS: Vancomycin 1,500 MG in D5% in Water 250 ML IVPB SCH (05:41)
[2017-02-23 05:55] LABS: Basophils # 0.1 K/mcL (0.0-0.2); Basophils % 0.9 %; Eosinophils # 0.1 K/mcL (0.0-0.6); Eosinophils % 0.4 %; Hematocrit 41.9 % (37.5-50.1); Hemoglobin 14.1 g/dL (12.9-16.9); Immature Granulocytes % 0.4 % (0-4); Lymphocytes # 2.1 K/mcL (0.6-4.6); Mean Corpuscular HGB Conc 33.7 g/dL (31.6-35.5); Mean Corpuscular Hemoglobin 30.5 pg (28.0-33.3); Mean Corpuscular Volume 90.5 fL (83.0-100.0); Mean Platelet Volume 9.9 fL (9.4-12.4); Monocytes # 0.9 K/mcL (0.0-1.3); Monocytes % 7.4 %; Neutrophils # 9.3 K/mcL (1.6-8.9); Platelet Count 401 K/mcL (140-400); Red Blood Count 4.63 M/mcL (4.19-5.50); Red Cell Distribution Width 12.5 % (11.5-14.5); Segmented Neutrophils % 73.9 %
[2017-02-23] MEDS: *HR* Heparin 5,000 UNIT/ML VIAL SQ SCH (05:55)
[2017-02-23 06:00] LABS: BUN/Creatinine Ratio 14 (6-26); Blood Urea Nitrogen 13 mg/dL (8-26); Calcium 9.2 mg/dL (8.6-10.8); Carbon Dioxide 23 mEq/L (19-29); Chloride 108 mEq/L (98-109); Glucose 126 mg/dL (70-99); Osmolality,Calculated 290 (280-300); Potassium 3.6 mEq/L (3.5-4.5); Sodium 139 mEq/L (136-145); eGFR For African Americans > 60 (> 60); eGFR For Non-African Americans > 60 (> 60)
[2017-02-23 08:18] VITALS: BP 120/53
[2017-02-23] MEDS: Piperacillin/Tazobactam 3.375 GM in D5% in Water (Mini-Bag+) 100 ML IVPB SCH (09:00)
--- NOTE | 2017-02-23 09:01 | Discharge Summary ---
Date of Encounter: 02/23/17 Time of Encounter: 09:01 - Discharge Diagnosis (1) Hep C w/o coma, chronic Priority: Secondary Status: Chronic (2) History of heroin use Priority: Secondary Status: Chronic (3) Tenosynovitis of hand Priority: Primary Status: Acute (4) Cellulitis of right hand Priority: Primary Status: Acute - Discharge Medications Prescriptions: Amoxicillin/Clavulanate [Augmentin] 875 mg PO BIDWM #12 tablet Home Medications: Amoxicillin/Clavulanate [Augmentin] 875 mg PO BIDWM #12 tablet 02/23/17 [Rx] Allergies/Adverse Reactions: Allergies No Known Allergies Allergy (Verified 02/20/17 05:33) Date of admission: 02/20/17 10:24 Primary care physician: PCP COLE Discharging clinician: Abdiaziz Freedman Anticipated date of discharge: 02/23/17 - Patient Status Disposition: Home, Self-Care Condition: Good Functional capacity at discharge: independent ambulation Overall status at discharge: patient is back to baseline - Discharge Instructions Instructions: Cellulitis (DC) Follow Up With: NO,PCP [Primary Care Provider] - - Diet and Activity Activity: resume usual activities as tolerated Diet: advance to your usual diet Interval History: See below Hospital course: Mr. Rhodes is a 31 year old male Admitted for management of cellulitis of R hand Hand Xray and Hand CT do not show any abscess collection Orthopedics was consulted with no planned intervention Leukocytosis improved with IV antibiotics Clinically his R hand has improved , at time of review, with very minimal swelling and no redness He is seen at bedside , no new complains He is stable to be discharged home 4 minutes spent on tobacco cessation counselling and IV drug use counseling Follow up with PCP Complete 5 more days of oral antibiotics at home - Time Spent with Patient Total time spent providing and/or coordinating discharge services: Less than 30 minutes - Constitutional Vitals: Temp Pulse Resp BP Pulse Ox 98.0 F 67 16 120/53 98 02/23/17 08:15 02/23/17 08:15 02/23/17 08:15 02/23/17 08:15 02/23/17 08:15 General appearance: Present: cooperative, A&O X 3, pleasant, answers questions appropriately - Head Head exam: Present: atraumatic, normocephalic - Eye Eye exam: Present: PERRL, conjuntiva pink, sclera anicteric Pupils: Present: PERRL - Neck Neck exam general surgery: Present: supple, trachea midline. Absent: lymphadenopathy - Respiratory Respiratory exam: Present: CTAB. Absent: accessory muscle use, rales, rhonchi, wheezes - Cardiovascular Cardiovascular exam: Present: RRR, +S1, +S2. Absent: diastolic murmur, gallop, rubs, systolic murmur - GI/Abdominal GI/Abdominal exam: Present: normal bowel sounds, soft, no peritoneal signs. Absent: distended, tenderness - Extremities Exam Extremities exam: Present: warm, radial pulses palpable and symetrical. Absent : calf tenderness, cyanotic, pedal edema Additional comments: R hand with very minimal swelling, no redness, neurovascularly intact - Neurological Exam Neurological exam: Present: alert, CN II-XII intact, normal gait, oriented X3, no focal deficits. Absent: pronater drift, facial droop, speech deficit - Skin Skin exam: Present: dry, intact
[2017-02-23] MEDS ORDERED: Aminoglycoside Consult 1 EACH MC ONE (09:26)
== END 2017-02-23 09:27 | disposition home or self-care (01) ==
LOC: EMEROO 05:31 → 3BNU 05:31
PROVIDERS: ADMIT Hospitalist; ATTEND Nurse Practitioner Family